=== PATIENT | female | born 1940 | race Caucasian/White ===

== ENCOUNTER 2017-02-07 20:40 | Inpatient (IN) | payer MEDICARE, BC ==
--- NOTE | ~2017-02-07 | CR72 ---
[facility] A Service of [facility] & [facility] RADIOLOGY TEXT RESULTS PATIENT: SHLOMO THOMAS LOCATION: [facility] 572-01 : 40 UNIT #: [id number] AGE: [address]: Conrad Ying MD SEX: F ORDER DR: [id number] [facility] [address]. [place], [place] [address] [id number] I MR#: [id number] #: [id number] NAME: SHLOMO THOMAS : 1940 SEX: F STUDY DATE/TIME: 02/12/2017 8:57 UNIT: [facility] ROOM: [facility] STUDY DESCRIPTION: CR Chest Single View Portable Attending Physician: Conrad Ying M.D. Referring Physician: Maulik Pizano Jr., M.D. Primary Care Physician: Maulik Pizano Jr., M.D. MEDICAL IMAGING REPORT This report is preliminary unless electronic signature is present EXAM Portable chest INDICATIONS 76-year-old female with history of right thoracentesis. COMPARISON 02/10/2017 FINDINGS There is no pneumothorax following thoracentesis. Right pleural effusion is slightly smaller. Stable consolidation right base. Remainder unchanged. IMPRESSION No pneumothorax following thoracentesis Dictated by... Rodrigo Woodward M.D. THIS IS AN ELECTRONICALLY VERIFIED REPORT Rodrigo Woodward M.D. at 02/13/2017 11:31 AM ARS/cristo TD: 02/12/2017 13:54 JOB #: [id number] MEDICAL IMAGING REPORT Page 1 of 1 COPY
--- NOTE | ~2017-02-07 | CO ---
Unit #: [id number] #: [id number] Patient: SHLOMO THOMAS [id number] [facility] [address]. [place], [place] [address] [id number] I MR#: [id number] NAME: SHLOMO THOMAS ROOM: 572 Age: 76 Sex: F Admission Date: 02/07/2017 : 1940 Attending Physician: Conrad Ying M.D. Primary Care Physician: Maulik Pizano Jr., M.D. Requesting Physician: Lana Hernandez M.D. Consultation Date: 02/08/2017 CONSULTATION REPORT REASON FOR CONSULTATION Lymphoma. 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 She had a previous admission in 09/2016. She had a persistent mass in the right lower lobe, which was initially treated as a pneumonia. 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 Post navigation bronchoscopy she had a persistent cough, which appeared to improve, and was thought to be related to some bleeding in the lung related to her procedure. She tells me that cough has persisted and has gotten worse. She has had two runs of antibiotics for Levaquin, as well as prednisone as an outpatient with failure, leading to this admission. CT scan of the chest done during this admission this morning showed right side volume loss with extensive air space disease, obscuring the previously noted mass, along with a moderate right side pleural effusion. There was no lymphadenopathy. There was an additional cardiomegaly with enlarged pulmonary arteries. She also has a history of sleep apnea but is unable to keep her mask on because of the persistent cough. No fever or chills but she feels tired and weak all the time. PAST MEDICAL HISTORY 1. Marginal zone lymphoma discussed. 2. Paroxysmal atrial fibrillation with a permanent pacemaker, secondary to gila-tachy syndrome. Anticoagulated with warfarin. 3. Hypertension. 4. Type 2 diabetes mellitus. 5. History of a previous DVT. 6. Peripheral vascular disease. 7. Cataracts. PAST SURGICAL HISTORY 1. Appendectomy. 2. Cholecystectomy. 3. D and C. 4. Arthroscopic surgery. 5. Shoulder replacement. 6. Permanent pacemaker. Unit #: [id number] #: [id number] Patient: SHLOMO THOMAS ALLERGIES Listed as multiple on the chart. FAMILY HISTORY Notable for diabetes mellitus. No history of (2)* . SOCIAL HISTORY The patient lives with her . She is a never smoker and does not drink alcohol. She is a retired registered nurse. REVIEW OF SYSTEMS 14-point systems taken: CONSTITUTIONAL: As discussed, fatigue. EYES: Negative. EARS, NOSE, MOUTH AND THROAT: Negative. CARDIOVASCULAR: No chest pain or palpitations. RESPIRATORY: Shortness of breathing, wheezing without significant cough or expectoration. GASTROINTESTINAL: Negative. GENITOURINARY: Negative. ALLERGIES/LYMPHATIC: Negative. SKIN: Negative. PSYCHIATRIC: Negative. PHYSICAL EXAMINATION GENERAL: She is a pleasant elderly woman in mild distress, secondary to difficulty breathing. VITAL SIGNS: Temperature is 98.5, pulse 71, respiratory rate 18, blood pressure 156/45. O2 sats 97% on 2 L. BMI is 45. HEENT: Pupils equal and react well to light. Mild pallor, no icterus. Mucous membranes are moist. NECK: Supple. No JVD or thyromegaly. CARDIOVASCULAR: First and second heart sounds are regular with no gallop or rubs. LUNGS: Decreased air entry lower 2/3 of the right lung, bilateral rales. ABDOMEN: Soft and nontender. Liver and spleen are not palpable. EXTREMITIES: Warm, trace edema. NEUROLOGICAL: Patient is alert and oriented x3, without any focal findings. LYMPHATIC: No palpable lymphadenopathy. SKIN: Negative. DIAGNOSTIC STUDIES LABORATORY STUDIES: Lactic acid was 2.7, BNP was 398. Basic metabolic panel shows a potassium of 6.5 at time of admission. Blood culture is 344. BUN was 60, creatinine 1.9, EGFR is 27.3, albumin 2.5, ProTime is 63.4. INR 5.7. IMAGING STUDIES: CT scan as discussed, which positive and read by me. ASSESSMENT Shlomo Thomas is a 76-year-old with a history of sleep apnea, type 2 diabetes mellitus, atrial fibrillation with a sick sinus syndrome and recently diagnosed pulmonary marginal zone lymphoma. Will start radiation therapy, having completed 9 out of 13 treatments. She has not been complaining of shortness of breathing and CT scan evidence above. The patient has right lower lobe consolidation with a moderate pleural effusion. Pulmonary marginal zone lymphoma strictly in terms of lymphoma Unit #: [id number] #: [id number] Patient: SHLOMO THOMAS (3)* response to treatment, so it is a little surprising that this should get (4)* worse with radiation therapy. She is currently being treated for broad spectrum antibiotics for hospital acquired pneumonia, which I think is reasonable. Discussed with Ms. Thomas that she will required correction of her long ProTime and after correction will plan to hold off resumption of warfarin, instead start doing Lovenox 80 mg subcu once daily to be held after Saturday's dose. If she continued to remained short of breath, will plan to get a thoracentesis on Saturday morning including sending the fluid for leukemia and lymphoma panel for evidence of resistant lymphoma. In which case she may require additional (5)* of radiation therapy of lung. Thank you for allowing me to participate in her care. *Faxed to Dr. Valdez's office on 02/11/17 for completion. cd Dictated by... Chema Rey/ken TD: 02/11/2017 11:34 JOB #: [id number] CONSULTATION REPORT X Cabrera Valdez MD X CONSULTATION REPORT
--- NOTE | ~2017-02-07 | CR72 ---
[facility] A Service of [facility] & [facility] RADIOLOGY TEXT RESULTS PATIENT: SHLOMO THOMAS LOCATION: [facility] 572-01 : 40 UNIT #: [id number] AGE: [address]: Conrad Ying MD SEX: F ORDER DR: [id number] [facility] [address] [place], [place] [address] [id number] I MR#: [id number] Acc #: [id number] NAME: SHLOMO THOMAS. : 1940 SEX: F STUDY DATE/TIME: 02/07/2017 20:42 UNIT: [facility] ROOM: [facility] STUDY DESCRIPTION: CR Chest Single View Portable Attending Physician: Conrad Ying M.D. Referring Physician: Maulik Pizano Jr., M.D. Ordering Physician: Daniele Osborne M.D. Primary Care Physician: Maulik Pizano Jr., M.D. MEDICAL IMAGING REPORT This report is preliminary unless electronic signature is present EXAM AP portable chest 02/07/2017 COMPARISON 01/03/2017 HISTORY Shortness of breath, cough and weakness for a few weeks. AP portable view is obtained. FINDINGS There is cardiac enlargement with a transvenous pacemaker in place. The patient has had a left shoulder arthroplasty. The left lung remains clear. There is worsening consolidation and development of right-sided pleural fluid. CONCLUSION Increasing consolidation right base and increasing right-sided pleural fluid compared to the earlier films of 01/03/2017. Dictated by... Maulik Woodruff M.D. THIS IS AN ELECTRONICALLY VERIFIED REPORT Maulik Woodruff M.D. at 02/11/2017 5:09 PM GIGI/kb TD: 02/08/2017 09:09 JOB #: [id number] MEDICAL IMAGING REPORT Page 1 of 1 COPY
--- NOTE | ~2017-02-07 | DS ---
Unit #: [id number] #: [id number] Patient: SHLOMO THOMAS [id number] [facility]. [address] [place], [place] [address] [id number] I MR#: [id number] NAME: SHLOMO THOMAS ROOM: 572 Age: 76 Sex: F Admission Date: 02/07/2017 : 1940 Discharge Date: Attending Physician: Conrad Ying M.D. Referring Physician: Maulik Pizano Jr., M.D. Primary Care Physician: Maulik Pizano Jr., M.D. DISCHARGE SUMMARY REASON FOR ADMISSION Acute hypoxic respiratory failure and acute kidney injury. HISTORY OF PRESENT ILLNESS/HOSPITAL COURSE The patient is a very pleasant, 76-year-old female, who presented secondary to acute hypoxic respiratory failure, off and on over the past several weeks. She had been initially diagnosed with pneumonia, failed to respond to outpatient antibiotics. She eventually underwent repeat CT scan and bronchoscopy at [facility]. Final diagnosis was made as lymphoma. She was subsequently placed under the care of Dr. Valdez and now the patient has been receiving radiation treatments over the past several days. Prior to admission, she had developed difficulty with breathing. She was noted to be acutely hypoxic in the emergency room. Chest x-ray showed consolidation of right lung base, possible right pleural effusion. CT scan was performed, which showed right-sided volume loss with consolidation in right lower lobe, which could be a combination of pneumonia, pleural effusion, as well as aforementioned lung mass and/or lymphoma. Subsequently, she was admitted for the same. Consultations were placed to Dr. Blanco of Pulmonary Services as well as Dr. Valdez. In regard to her pulmonary status, she was placed on IV antibiotics as well as routine Solu-Medrol and aerosols. Eventually through hospital course, she underwent thoracentesis, which did eventually have negative cytology. She continued her radiation treatments while she was here under evaluation of . At this point in time, the patient requires 2 L of O2 secondary to hypoxia, which may be her new baseline. Secondary to associated conditions as well as chronic and long hospital stay, Physical and Occupational Therapy Services both recommended rehab at the time of discharge. Therefore, appropriate arrangements will be made for her to be transitioned to rehab at the time of discharge. FINAL DISCHARGE DIAGNOSES 1. Acute hypoxic respiratory failure. Unit #: [id number] #: [id number] Patient: SHLOMO THOMAS 2. Chronic respiratory failure, likely a combination of lymphoma, chronic obstructive pulmonary disease, and restrictive lung disease secondary to increased body mass index. 3. Recent diagnosis of lymphoma followed by Dr. Valdez. 4. Paroxysmal atrial fibrillation. 5. Status post permanent pacemaker placement in the past. 6. Chronic anticoagulation with Coumadin. 7. Hypertension. 8. Diabetes. 9. Hyperparathyroidism, status post excision in the past of parathyroid gland. 10. Remote left arm deep venous thrombosis. 11. Prior history of left shoulder replacement. 12. Morbid obesity. 13. Peripheral vascular disease. 14. Chronic lower extremity edema. 15. Chronic lower extremity venostasis changes. 16. Chronic immobility syndrome. 17. Pleural effusion, status post thoracentesis. FINAL DISCHARGE MEDICATIONS Prednisone 40 mg p.o. daily x3 days, Tylenol 650 mg p.o. q.6 p.r.n., Coumadin 5 mg p.o. daily, metformin 500 mg p.o. b.i.d., Lomotil 2.5 mg p.o. q.6 p.r.n., Lipitor 40 mg p.o. q.h.s., Tessalon Perles 200 mg p.o. q.8 p.r.n., Cardizem CD 180 mg p.o. daily, Xanax 0.25 mg p.o. b.i.d. p.r.n., Lopressor 100 mg p.o. q.8, Lasix 40 mg p.o. Saturday, Saturday, Saturday, hydralazine 100 mg p.o. q.8, Humulin N 50 units subcu b.i.d., NovoLog medium dose sliding scale with insulin Accu-Cheks q.a.c., q.h.s., Pepcid 20 mg p.o. b.i.d., Florastor 250 mg p.o. b.i.d., Xopenex aerosol solution q.4 p.r.n., DuoNeb aerosol solution q.6 scheduled, Synthroid 50 mcg p.o. daily, vitamin B12 1000 mcg IM q.2 weeks. DISCHARGE CONDITION Stable. DISCHARGE DISPOSITION To rehab for ongoing care. DIAGNOSTIC STUDIES LABORATORY RESULTS: At the time of discharge include a creatinine of 1.1, GFR 51, INR 1.3, hemoglobin 11.2. Dictated by... Conrad Ying M.D. GLYNN/tony TD: 02/16/2017 04:51 JOB #: [id number] Unit #: [id number] #: [id number] Patient: SHLOMO THOMAS DISCHARGE SUMMARY Page 1 of 1 X Conrad Ying MD X DISCHARGE SUMMARY
--- NOTE | ~2017-02-07 | CO ---
Unit #: [id number] #: [id number] Patient: SHLOMO THOMAS [id number] [address] [place], [place] [address] [id number] I MR#: [id number] NAME: SHLOMO THOMAS ROOM: 572 Age: 76 Sex: F Admission Date: 02/07/2017 : 1940 Attending Physician: Conrad Ying M.D. Primary Care Physician: Maulik Pizano Jr., M.D. Consultation Date: 02/08/2017 CONSULTATION REPORT REASON FOR CONSULTATION Abnormal CAT scan, shortness of breath, respiratory failure. HISTORY OF PRESENT ILLNESS 76-year-old female known to me from office and previous hospitalizations who had a right lower lobe mass-like lesion. She was treated for possible pneumonia and did not improve. She ultimately underwent navigational bronchoscopy with biopsy that revealed lymphoma. She had been evaluated by Dr. Valdez and and is currently undergoing radiation therapy. She has had some cough, then developed worsening malaise. She actually just recently completed a course of Levaquin, last dose approximately a day or two ago. She also was placed on prednisone approximately three days ago by with no change in her symptoms. She had worsening shortness of breath, malaise and presented to the emergency room. Room air saturations were 88%. Chest x-ray and CT scan revealed right lower lobe consolidation. She was admitted to the hospital with pneumonia. She was also found to have hyperkalemia and acute kidney injury and her antibiotics have been adjusted. She does not feel any better today. She denies fever, sputum production, hemoptysis, chest pain. PAST MEDICAL HISTORY Remarkable for: 1. This lung mass diagnosed with lymphoma. Undergoing radiation to the primary mass. She has some scattered adenopathy of unknown clinical significance. 2. She has a history of recently diagnosed obstructive sleep apnea, just started on CPAP, and currently is intolerant primarily because of her symptoms of shortness of breath. 3. History of diabetes. 4. Hypertension. 5. Chronic dermatitis. 6. Paroxysmal atrial fibrillation. 7. Permanent pacemaker insertion. 8. Hyperparathyroidism. 9. Remote DVT that was provoked. 10. Peripheral vascular disease. MEDICATIONS Medications at home include: 1. Insulin. 2. Cardizem. 3. Metformin. 4. Glipizide. 5. Lipitor. Unit #: [id number] #: [id number] Patient: SHLOMO THOMAS 6. Lopressor. 7. Hydralazine. 8. Lisinopril. 9. Synthroid. 10. Potassium. 11. Coumadin. 12. Lasix as needed. 13. As above, was recently placed on prednisone and just completed Levaquin, both of which have been prescribed by . ALLERGIES Demeclocycline, Bactrim, Byetta. She states allergy to Cipro but she has been taking Levaquin without problems. There is some mention of a familial history of allergy to heparin but it is unclear of she had any problems. FAMILY HISTORY Diabetes. SOCIAL HISTORY Never smoker. She does not drink. 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 REVIEW OF SYSTEMS Nonproductive cough for months but it has worsened. Denies sputum production, hemoptysis. No chest pain, palpitations, abdominal pain, melena, hematochezia, trouble swallowing, hematuria, dysuria, focal weakness, paresthesia. She had very severe foot pain in the past but that has improved. She has chronic skin changes without change. No fever or chills. She currently is intolerant to CPAP. Further review of systems negative. PHYSICAL EXAMINATION GENERAL: Reveals a patient who is in no acute distress. VITAL SIGNS: She is afebrile. Pulse 71, respiratory rate 22, blood pressure 156/45. 5 foot 2, 247. BMI is 45. HEENT: Pupils equal, round, reactive to light. Sclerae anicteric. Head atraumatic. NECK: Supple. Mucous membranes moist. CHEST: She has egophony right lower lobe which was not present when I saw her in the office not long ago. May be a rare wheeze with cough but no wheeze on tidal breathing. No stridor. CARDIAC EXAMINATION: Reveals a regular rate and rhythm. Distant heart tones. No definite murmur, rub or gallop. ABDOMEN: Soft, nontender. No hepatomegaly or rebound. EXTREMITIES: No clubbing, cyanosis or edema. SKIN: Nodular, brawny induration changes that she says are chronic and stable. NEUROLOGICAL: Grossly intact. She has, overall, generalized weakness but no focality sensory or muscle weakness. DIAGNOSTIC STUDIES IMAGING: Chest x-ray - worsening density right lower lobe. Initially, she had a very focal rounded density back in September. Chest x-ray earlier this year showed worsening in that area, possible small pleural effusion and it is certainly much worse today. CT scan reveals consolidation, some of which could be tumor. Unclear how much true pneumonia. She has what the radiologist characterizes as a moderate Unit #: [id number] #: [id number] Patient: SHLOMO THOMAS A pleural effusion. To me, it looks relatively small in the grand scheme of things. LABORATORY: Her blood sugar was 344, now 239. BUN was 60, now 51. Creatinine was 1.9, now 1.7. Potassium was 6.5, now 5.0. BNP 398. Lactic acid 2.5. Procalcitonin 0.09. INR is 5.7. White blood cell count was 15.6, now 12.1. Hemoglobin 9.5. Platelet count 370. No urinalysis has been performed. Blood cultures performed and are pending. CARDIOVASCULAR: Rhythm strips appear paced, at least atrial pacing if not dual chamber. IMPRESSION 1. Shortness of breath, multifactorial. 2. Acute hypoxic respiratory failure. 3. Abnormal CAT scan: I believe there is some degree of pneumonia, some tumor, possibly some necrosis and inflammatory changes from radiation. 4. Obstructive sleep apnea: I believe severe, just recently received CPAP, currently intolerant. 5. Pulmonary lymphoma, undergoing radiation. 6. Acute kidney injury. 7. Hyperkalemia. 8. Paroxysmal atrial fibrillation. 9. Coumadin toxicity. 10. Remote history of provoked deep venous thrombosis. 11. Chronic dermatitis. 12. Diabetes, hypertension, peripheral vascular disease and multiple other problems listed above. 13. Abnormal EKG. PLAN Agree with current antibiotics. Certainly, since she has failed Levaquin, we must consider organisms that may be resistant or that Levaquin does not cover such as MRSA or Gram-negative rods. Also, consider other etiologies such as necrotic tumor, etc. Pulse steroids, check echocardiogram if not recently performed for LV function, PA pressures and rule out pericardial effusion. For now, hold her CPAP. Reinstitute once she is improved. Her oxygenation needs will be checked at discharge. Repeat EKG now that her potassium has improved will be performed. Consider cardiology evaluation if remains abnormal. Thank you very much for allowing me to participate in the care of Ms. Thomas. Dictated by... Chema Beltran/ashley TD: 02/08/2017 10:40 JOB #: [id number] Unit #: [id number] #: [id number] Patient: SHLOMO THOMAS CONSULTATION REPORT X Ceicl Blanco MD X CONSULTATION REPORT
--- NOTE | ~2017-02-07 | NM69 ---
[facility] A Service of [facility] RADIOLOGY TEXT RESULTS PATIENT: SHLOMO THOMAS LOCATION: [facility] 572-01 : 40 UNIT #: [id number] AGE: [address]: Conrad Ying MD SEX: F ORDER DR: [id number] [facility] [address] [place], [place] [address] [id number] I MR#: [id number] Acc #: [id number] NAME: SHLOMO THOMAS : 1940 SEX: F STUDY DATE/TIME: 02/10/2017 10:11 UNIT: [facility] ROOM: [facility] STUDY DESCRIPTION: NM Pulm Vent and Perf Attending Physician: Conrad Ying M.D. Referring Physician: Maulik Pizano Jr., M.D. Ordering Physician: Conrad Ying M.D. Primary Care Physician: Maulik Pizano Jr., M.D. MEDICAL IMAGING REPORT This report is preliminary unless electronic signature is present EXAM Ventilation perfusion lung scan 02/10/2017. HISTORY 76-year-old female with shortness of breath for 2 days. TECHNIQUE Radiopharmaceutical 36 mCi technetium DTPA given by inhalation. 5.7 mCi technetium MAA given IV. COMPARISON Correlation is made to chest x-ray 02/10/2017. FINDINGS Cardiomegaly and large right pleural effusion are present. There is relatively uniform ventilation and perfusion radiotracer uptake throughout both lungs with no mismatched ventilation-perfusion defects. Examination is considered low probability for pulmonary vascular occlusive disease. IMPRESSION 1. Low probability for pulmonary vascular occlusive disease. 2. Cardiomegaly and large right pleural effusion. Dictated by... Dat Rinaldi M.D. THIS IS AN ELECTRONICALLY VERIFIED REPORT Dat Rinaldi M.D. at 02/12/2017 8:36 AM DANN/rosalio TD: 02/11/2017 09:24 JOB #: [id number] [facility] A Service of [facility] RADIOLOGY TEXT RESULTS PATIENT: SHLOMO THOMAS LOCATION: [facility] 572-01 : 40 UNIT #: [id number] AGE: [address]: Conrad Ying MD SEX: F ORDER DR: MEDICAL IMAGING REPORT Page 1 of 1 COPY
--- NOTE | ~2017-02-07 | CT57 ---
[facility] A Service of [facility] RADIOLOGY TEXT RESULTS PATIENT: SHLOMO THOMAS LOCATION: [facility] 572-01 : 40 UNIT #: [id number] AGE: [address]: Conrad Ying MD SEX: F ORDER DR: [id number] [facility] [address] [place], [place] [address] [id number] I MR#: [id number] Acc #: [id number] NAME: SHLOMO THOMAS. : 1940 SEX: F STUDY DATE/TIME: 02/07/2017 22:06 UNIT: [facility] ROOM: 2 STUDY DESCRIPTION: CT Chest Wo Cont Attending Physician: Conrad Ying M.D. Referring Physician: Maulik Pizano Jr., M.D. Ordering Physician: Daniele Osborne M.D. Primary Care Physician: Maulik Pizano Jr., M.D. MEDICAL IMAGING REPORT This report is preliminary unless electronic signature is present EXAM CT chest without contrast HISTORY Shortness of air onset this evening, cough, history of lung cancer. COMPARISON CT chest, 11/13/[address] exam was performed with one or more of the following radiation dose reduction techniques: automatic exposure control, adjustment of mA and/or kV according to patient size, and iterative reconstruction. FINDINGS Axial images were performed through the chest without contrast. Multiplanar reconstructed images reviewed at a workstation. There is right-sided volume loss with extensive airspace disease and consolidation in the right lower lobe. This may obscure the patient's underlying lung mass which was noted on the prior CT scan. Image quality degraded due to patient's body habitus and associated image noise. There is a moderate right pleural effusion. Right upper lung unremarkable. The left lung demonstrates a small amount of lingular and left basilar atelectasis. There is cardiomegaly with coronary artery and aortic atherosclerotic changes. No pericardial effusion. Enlargement of the main pulmonary artery may indicate an element of pulmonary hypertension. Upper abdomen unremarkable. Patient is status post left total shoulder arthroplasty. Pacemaker noted over the left chest with atrial and ventricular leads in expected position. IMPRESSION 1. Right-sided volume loss with extensive airspace disease, STS. [facility] A Service of [facility] RADIOLOGY TEXT RESULTS PATIENT: SHLOMO THOMAS LOCATION: [facility] 572-01 : 40 UNIT #: [id number] AGE: [address]: Conrad Ying MD SEX: F ORDER DR: consolidation right lower lobe most likely represents a combination of the patient's primary lung mass and right lower lobe pneumonia. There is also a moderate right-sided pleural effusion. This represents a new finding when compared to the patient's CT scan of 11/13/2016. 2. Stable cardiomegaly with evidence of extensive coronary artery atherosclerotic disease. 3. Enlargement of the pulmonary arteries may reflect pulmonary hypertension. Dictated by... Maxx Woodward M.D. THIS IS AN ELECTRONICALLY VERIFIED REPORT Maxx Woodward M.D. at 02/08/2017 5:12 PM [place] TD: 02/08/2017 09:36 JOB #: [id number] MEDICAL IMAGING REPORT COPY
--- NOTE | ~2017-02-07 | EKG ---
PATIENT: SHLOMO THOMAS UNIT #: [id number] Ventricular Rate: 75 BPM Atrial Rate: 75 BPM P-R Interval: 256 ms QRS Duration: 102 ms Q-T Interval: 370 ms QTC Calculation(Bezet): 413 ms P Oak: -19 degrees Calculated R Oak: -20 degrees Calculated T Oak: 51 degrees Diagnosis Line: Atrial-paced rhythm with prolonged AV conduction Diagnosis Line: Low voltage QRS Diagnosis Line: Poor R wave progression questionable lead position Diagnosis Line: or body habitus Abnormal ECG Diagnosis Line: When compared with ECG of 19-AUG-2015 14:32, Diagnosis Line: Minimal criteria for Anterior infarct are now Diagnosis Line: Present Diagnosis Line: Confirmed by BRI BOYLE MD ([id number]) on 02/11/2017 Diagnosis Line: 7:17:03 AM INTERPRETING MD: TAMAR LUCIO
--- NOTE | ~2017-02-07 | XA203 ---
[facility] A Service of [facility] & [facility] RADIOLOGY TEXT RESULTS PATIENT: SHLOMO THOMAS LOCATION: [facility] 572-01 : 40 UNIT #: [id number] AGE: [address]: Conrad Ying MD SEX: F ORDER DR: [id number] [facility] [address] [place], [place] [address] [id number] I MR#: [id number] Acc #: [id number] NAME: SHLOMO THOMAS. : 1940 SEX: F STUDY DATE/TIME: 02/12/2017 8:15 UNIT: [facility] ROOM: [facility] STUDY DESCRIPTION: XA Thoracentesis Attending Physician: Conrad Ying M.D. Referring Physician: Maulik iPzano Jr., M.D. Ordering Physician: Conrad Ying M.D. Primary Care Physician: Maulik Pizano Jr., M.D. MEDICAL IMAGING REPORT This report is preliminary unless electronic signature is present EXAM Ultrasound-guided right thoracentesis. INDICATIONS 76-year female right pleural effusion. The risks, benefits and alternatives of the procedure were discussed with the patient and informed consent was obtained. In the procedure room a time-out was performed confirming correct patient and procedure. All elements maximum sterile-barrier technique utilized according guidelines appropriate for the procedure. TECHNIQUE/FINDINGS Ultrasound right posterior thorax was performed. Overlying skin was prepped and draped in the usual sterile fashion. 1% lidocaine utilized to anesthetize the skin and underlying subcutaneous tissues. Next, under ultrasound guidance a 5-Kinyarwanda Yueh catheter inserted into the pleural space and 300 mL of fluid was removed. The samples was sent to the lab. Needle was removed and a sterile dressing was applied. No immediate complications. IMPRESSION Successful send guided right thoracentesis. Dictated by... Rodrigo Woodward M.D. THIS IS AN ELECTRONICALLY VERIFIED REPORT Rodrigo Woodward M.D. at 02/13/2017 11:32 AM VIKKI/karolyn TD: 02/13/2017 07:19 STS. [facility] A Service of [facility] & [facility] RADIOLOGY TEXT RESULTS PATIENT: SHLMOO THOMAS LOCATION: [facility] 572-01 : 40 UNIT #: [id number] AGE: [address]: Conrad Ying MD SEX: F ORDER DR: JOB #: [id number] MEDICAL IMAGING REPORT Page 1 of 1 COPY
--- NOTE | ~2017-02-07 | EKG ---
PATIENT: SHLOMO THOMAS UNIT #: [id number] Ventricular Rate: 75 BPM Atrial Rate: 107 BPM P-R Interval: 248 ms QRS Duration: 96 ms Q-T Interval: 376 ms QTC Calculation(Bezet): 419 ms Calculated R Pinon: 7 degrees Calculated T Pinon: -18 degrees Diagnosis Line: Atrial-paced rhythm with prolonged AV conduction Diagnosis Line: Low voltage QRS Baseline wander Diagnosis Line: Abnormal ECG Diagnosis Line: When compared with ECG of 07-FEB-2017 20:57, Diagnosis Line: (unconfirmed) Diagnosis Line: Minimal criteria for Anterior infarct are no Diagnosis Line: longer Present Diagnosis Line: T wave inversion now evident in Inferior leads Diagnosis Line: Nonspecific T wave abnormality, worse in Lateral Diagnosis Line: leads Diagnosis Line: Confirmed by BRI BOYLE MD ([id number]) on 02/11/2017 Diagnosis Line: 7:21:26 AM INTERPRETING MD: TAMAR LUCIO
--- NOTE | ~2017-02-07 | DS ---
Unit #: [id number] #: [id number] Patient: SHLOMO THOMAS [id number] [address] [place], [place] [address] [id number] I MR#: [id number] NAME: SHLOMO THOMAS ROOM: 572 Age: 76 Sex: F Admission Date: 02/07/2017 : 1940 Discharge Date: 02/16/2017 Attending Physician: Conrad Ying M.D. Referring Physician: Maulik Pizano Jr., M.D. Primary Care Physician: Maulik Pizano Jr., M.D. DISCHARGE SUMMARY ADDENDUM Please see above discharge summary for complete details of hospital stay. Initially, plans were made for discharge to rehab; however, after the patient was evaluated by Physical therapy once again, she was able to ambulate approximately 200 feet and she did have an episode of weakness to which she did come to the floor; however, the patient's insurance company stated that she did not qualify for rehab and per patient's insurance company guidelines and regulations for Medicare, we will make arrangements for the patient to be discharged home. Appropriate prescriptions were written for. I did discuss with the patient in detail. She is in agreement with the plan. We will have home health setup at time of discharge as well. The patient discharged in stable condition. Appropriate outpatient followup as detailed above. Dictated by... Chema Dewitt/tony TD: 02/16/2017 21:04 JOB #: [id number] DISCHARGE SUMMARY Page 1 of 1 X Conrad Ying MD X DISCHARGE SUMMARY
--- NOTE | ~2017-02-07 | BMI ---
[facility] Nutrition Therapy DATE: 02/08/17 Patient: SHLOMO THOMAS Physician: BELLA Address: [address] Room/Bed: [address] [place] [address], Zip: [place] [address] Admit Date: 02/07/17 Date of : 40 Height: 5 2 Weight: 247 112.4 HIGH BMI NOTE: DX: 76 Y.O. FEMALE ADMITTED FOR LINK, RESP FAILURE, COUMADIN ANTHROPOMETRICS: 5'2", WT: 240# (109 KG), BMI: 43.9 DIET: CC+HH INTERVENTION: 1. CC+ HH DIET RECOMMENDATIONS: 1. CONTINUE CURRENT DIET ORDER ABOVE TO PROMOTE GRADUAL WEIGHT LOSS TOWARDS HEALTHY BMI (19.0-25.0) OR +/-10%IBW RD WILL F/U PER PROTOCOL Respectfully, HU MCLAIN MS, RD, LD Food and Nutritional Services [facility] cc: client file
--- NOTE | ~2017-02-07 | CR63 ---
[facility] A Service of [facility] & [facility] RADIOLOGY TEXT RESULTS PATIENT: SHLOMO THOMAS LOCATION: [facility] 57-01 : 40 UNIT #: [id number] AGE: [address]: Conrad Ying MD SEX: F ORDER DR: [id number] [facility] [address] [place], [place] [address] [id number] I MR#: [id number] Acc #: [id number] NAME: SHLOMO THOMAS : 1940 SEX: F STUDY DATE/TIME: 02/10/2017 9:27 UNIT: [facility] ROOM: [facility] STUDY DESCRIPTION: CR Chest 2 View Attending Physician: Conrad Ynig M.D. Referring Physician: Maulik Pizano Jr., M.D. Ordering Physician: Ben Miller M.D. Primary Care Physician: Maulik Pizano Jr., M.D. MEDICAL IMAGING REPORT This report is preliminary unless electronic signature is present EXAM PA and lateral chest 02/10/2017 at 9:27. COMPARISON 02/07/2017. HISTORY Short of air today. History of lung cancer. FINDINGS Increasing opacity of the right hemithorax with an increasing now at least moderate or moderate to large right pleural effusion. Cardiomegaly and vascular congestion seen also slightly worsened. No pneumothorax. Dictated by... Jeffery Jeff M.D. THIS IS AN ELECTRONICALLY VERIFIED REPORT Jeffery Jeff M.D. at 02/12/2017 1:49 PM TEV/gz TD: 02/11/2017 09:22 JOB #: [id number] MEDICAL IMAGING REPORT Page 1 of 1 COPY
--- NOTE | ~2017-02-07 | US84 ---
[id number] [facility]. [facility] [address] [place], [place] [address] [id number] I MR#: [id number] Acc #: [id number] NAME: SHLOMO THOMAS : 1940 SEX: F STUDY DATE/TIME: 02/10/2017 10:54 UNIT: [facility] ROOM: 572 STUDY DESCRIPTION: US LE Veins Complete Hong Stdy Attending Physician: Conrad Ying M.D. Referring Physician: Maulik Pizano Jr., M.D. Ordering Physician: Conrad Ying M.D. Primary Care Physician: Maulik Pizano Jr., M.D. MEDICAL IMAGING REPORT This report is preliminary unless electronic signature is present EXAM Bilateral lower extremity venous Doppler, 02/10/2017. HISTORY Significant bilateral lower extremity swelling; evaluate for DVT. FINDINGS The right common femoral vein, proximal superficial femoral vein, deep femoral vein, popliteal vein, and tibial veins are widely patent with normal-appearing phasic flow with respiration and augmentation. The mid and distal thigh superficial femoral vein was not visualized on this examination. Deep proximal and distal greater saphenous vein is patent and compressible. The left common femoral vein, deep femoral vein, proximal and mid superficial femoral vein, popliteal vein, and tibial veins are widely patent and compressible with phasic flow with respiration and augmentation. The distal left superficial femoral vein is not visualized on this examination. The proximal and distal greater saphenous vein is patent and compressible. IMPRESSION No evidence of either right or left lower extremity deep venous thrombosis with nonvisualization of the right mid and distal thigh superficial femoral vein and left distal superficial femoral vein. There is no evidence of superficial venous thrombosis. Dictated by... Rakesh Garcia M.D. THIS IS AN ELECTRONICALLY VERIFIED REPORT Rakesh Garcia M.D. at 02/13/2017 6:26 AM TRACIE/kaitlin TD: 02/11/2017 09:36 JOB #: [id number] MEDICAL IMAGING REPORT Page 1 of 1 COPY
--- NOTE | ~2017-02-07 | HP ---
Unit #: [id number] #: [id number] Patient: SHLOMO THOMAS [id number] [facility]. [place] [address]. [place], [place] [address] [id number] I MR#: [id number] NAME: SHOLMO THOMAS. ROOM: 572 Age: 76 Sex: F Admission Date: 02/07/2017 : 1940 Attending Physician: Lana Hernandez M.D. Referring Physician: Maulik Pizano Jr., M.D. Primary Care Physician: Maulik Pizano Jr., M.D. HISTORY AND PHYSICAL CHIEF COMPLAINT Acute hypoxic respiratory failure, acute kidney injury. 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 The patient was admitted to this facility 09/2016 and was diagnosed with possible pneumonia. Had repeat CT scans, which did not show improvement. Ultimately underwent bronchoscopy at [facility]. Was told that she had lymphoma and is being seen by Dr. Valdez. She is undergoing radiation by Dr. Dariusz Jones. Has been having difficulty with shortness of breath for some time and nonproductive cough. She was given two rounds of Levaquin, and yesterday was placed on prednisone as well. She had sudden onset of shortness of breath at 7:00 p.m. tonight with her cough. Denies chest pain with the above, denies fevers, sweats or chills. She has been experiencing anorexia with decrease p.o. intake. She was brought to this emergency department around 8:00 p.m., short of breath, and a bit agitated because she was short of breath. Her O2 saturation was only 88% on room air. She was afebrile. She was given a small dose of Xanax to calm her down. Chest x-ray shows worsening consolidation of the right base with increased right pleural effusion. A CT scan was therefore, performed showing right-sided volume loss with consolidation right lower lobe, which could be a consolidation right lower lobe, which could be a combination of pneumonia, along with patient's known lung mass with moderate right pleural effusion. Labs are notable for serum glucose of 344, acute kidney injury, Coumadin toxicity and hyperkalemia. The patient, therefore, was treated with Zosyn, tobramycin, vancomycin. She is given a calcium gluconate, bicarb, IV insulin along with a liter of saline. Again while she has a nonproductive cough, she denies chest pain, fever, sweats or chills with the above. PAST MEDICAL HISTORY 1. Recent diagnosis of lymphoma being followed by Dr. Valdez. The patient is undergoing radiation treatment by Dr. Dariusz Jones. She was recently treated with two rounds of Levaquin for her cough and possible pneumonia and was placed on prednisone yesterday. 2. Paroxysmal atrial fibrillation, status post permanent pacemaker insertion, followed by Dr. Wing Tuttle. Patient is anticoagulated. 3. Hypertension. 4. AODM. 5. Hyperparathyroidism with excision of parathyroid gland. 6. Remote left arm DVT following a total shoulder replacement. Unit #: [id number] #: [id number] Patient: SHLOMO THOMAS 7. Peripheral vascular disease. 8. Cataract extraction. 9. Appendectomy. 10. Cholecystectomy. 11. Previous D and C. 12. Right arthroscopic knee surgery. ALLERGIES Demeclocycline, Bactrim, Byetta. Patient developed a rash when touching Thorazine while working as a nurse. She is also allergic to Cipro, resulting in a rash. Her family is allergic to heparin and she was told not to take heparin. HOME MEDICATIONS Novolin N 50 units q. a.m. and 42 units in the evening; Cardizem ER 180 mg daily; metformin 500 mg q. p.m.; glipizide 10 mg b.i.d.; Lipitor 80 mg q.h.s.; Lopressor 100 mg t.i.d.; hydralazine 100 mg t.i.d.; lisinopril 40 mg q.a.m.; Synthroid 0.5 mg daily; potassium 20 mEq q. a.m.; Coumadin 5 mg as directed; vitamin D 4,000 units q.a.m.; Lasix 40 mg daily as needed; recently started on prednisone yesterday; B12 shots each month and Tylenol. FAMILY HISTORY Diabetes mellitus. SOCIAL HISTORY The patient lives with her . She is a lifelong nonsmoker and does not drink alcohol. 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 REVIEW OF SYSTEMS Notable for cough, shortness of breath, PAF, hyperlipidemia, hypertension, lymphoma, AODM, hyperparathyroidism, remote DVT, above mentioned surgeries. All other systems were reviewed and are otherwise negative. PHYSICAL EXAMINATION GENERAL: Pleasant, obese, 76-year-old female who has a frequent nonproductive cough. VITAL SIGNS: Temperature 97.6, pulse 83, respirations 26, blood pressure 164/94, O2 saturation is 88% on room air. HEENT: Eyes - PERRLA, extraocular muscles are intact. Pharynx - dry mucosal membranes. NECK: Supple without adenopathy or thyromegaly. CHEST: With diminished breath sounds at the right base and some crackles at the right base. CARDIAC: Normal S1 and S2 without definite murmur. ABDOMEN: Bowel sounds are present. No hepatosplenomegaly, tenderness, or masses. EXTREMITIES: Notable for chronic pedal edema. Pedal pulses are diminished. No ulcers on the feet. NEUROLOGIC: Patient is awake, alert and oriented. Cranial nerves are intact. Equal strength throughout. DIAGNOSTIC STUDIES ADMISSION LABS: Hematocrit is 33.2, which is stable, white blood count 15.6 but the patient is on steroids. Platelet count is 484. 1 band noted. INR is 5.7. SMA 12 - glucose 344, BUN 60, creatinine 1.9, sodium 134, potassium is 6.5, CO2 19, protein 8.4, albumin 2.5, alk phos 109, BNP 400, lactic acid 2.7. Unit #: [id number] #: [id number] Patient: SHLOMO THOMAS IMAGING STUDIES: Chest x-ray - increased consolidation right base with increased right pleural effusion. CT of the chest without contrast right volume loss. Consolidation right lower lobe, likely a combination of pneumonia and mass with moderate right pleural effusion. Likely pulmonary hypertension. CARDIOLOGY STUDIES: EKG - paced rhythm rate 75. ASSESSMENT 1. Acute hypoxic respiratory failure. Patient has a pulmonary lymphoma, undergoing XRT. Has consolidation of the right base despite two rounds of Levaquin. I am unsure if this is truly related to pneumonia. Also has a moderate right pleural effusion. 2. Acute kidney injury in part secondary to poor p.o. and medications. Patient has associated hyperkalemia on oral potassium. 3. Possible early sepsis. 4. Uncontrolled AODM, patient just started prednisone. 5. Paroxysmal atrial fibrillation, status post permanent pacemaker anticoagulated with Coumadin toxicity. 6. Essential hypertension. PLANS 1. Medications were given for hyperkalemia in the ER. Will shortly recheck labs. Patient received tobramycin, vancomycin and Zosyn in the ER. In the morning will change antibiotics to cefepime and Zyvox given acute kidney injury pending cultures. Again I am unsure if patient truly has pneumonia, and I will check a procalcitonin level. 2. Check cardiac enzymes. 3. Pulmonary and oncology, along with radiology oncology consultation. 4. Hold potassium, Glucophage, Lasix, lisinopril, and Coumadin. 5. IV fluids and supportive treatment. 6. Xopenex mini-nebs. 7. Repeat lactic acid level as well. 8. Urinalysis. 9. Further workup depending on above. Dictated by Lana Hernandez M.D. AML/ts TD: 02/08/2017 05:12 JOB #: [id number] HISTORY AND PHYSICAL X Lana Hernandez MD X HISTORY AND PHYSICAL
--- NOTE | ~2017-02-07 | CT71 ---
[facility] A Service [facility] RADIOLOGY TEXT RESULTS PATIENT: SHLOMO THOMAS LOCATION: [facility] 572-01 : 40 UNIT #: [id number] AGE: [address]: Conrad Ying MD SEX: F ORDER DR: [id number] [facility] [address] [place], [place] [address] [id number] I MR#: [id number] Acc #: [id number] NAME: SHLOMO THOMAS : 1940 SEX: F STUDY DATE/TIME: 02/11/2017 20:23 UNIT: [facility] ROOM: [facility] STUDY DESCRIPTION: CT Head Wo Contrast Attending Physician: Conrad Ying M.D. Referring Physician: Maulik Pizano Jr., M.D. Ordering Physician: Conrad Ying M.D. Primary Care Physician: Maulik Pizano Jr., M.D. MEDICAL IMAGING REPORT This report is preliminary unless electronic signature is present EXAM Head CT 02/11/2017 INDICATION Increasing confusion today which is new onset. Patient also reports finger numbness. Patient has a history of lung cancer. TECHNIQUE This CT exam was performed with one or more of the following radiation dose reduction techniques: automatic exposure control, adjustment of mA and/or kV according to patient size, and iterative reconstruction. FINDINGS Axial images were obtained from the base to the vertex without contrast. No comparisons. There are atherosclerotic calcifications in the carotid siphons and distal vertebral arteries. Ventricular size and configuration are within normal limits. The exam is slightly motion-degraded. Chronic small vessel ischemic changes are present in the white matter. No acute infarct or hemorrhage is seen. No skull fracture. No suspicious osseous lesions. IMPRESSION Motion-degraded exam. No acute abnormalities are identified, however. Dictated by... Daniele Tobias Jr., M.D. THIS IS AN ELECTRONICALLY VERIFIED REPORT Daniele Tobias Jr., M.D. at 02/12/2017 4:22 PM [facility] A Service [facility] RADIOLOGY TEXT RESULTS PATIENT: SHLOMO THOMAS LOCATION: [facility] 572-01 : 40 UNIT #: [id number] AGE: [address]: Conrad Ying MD SEX: F ORDER DR: JAZZMINE/melecio TD: 02/12/2017 10:31 JOB #: [id number] MEDICAL IMAGING REPORT Page 1 of 1 COPY
[~2017-02-07 20:40] MED LIST: ADALATCC PO; AMOXICILLIN500 M1 PO; ASPIR-TRIN325 MG PO; ASPIRINEC PO; ATORVASTATIN CA80 MG PO; AUGMENTIN PO; CALAN SR PO; CALCIUM WITH VIT D; COLACE PO; COUMADIN5 MG PO; COUMADIN7.5 MG PO; CYANOCOBAL1000 MCG/M INJ; DIAZEPAM PO; DILTIAZEM ER180 MG PO; DIOVAN PO; GLIPIZIDE10 MG PO; GLUCOTROL XL PO; HUMULIN N100 U/ML SUBQ; HYDRALAZINE HC100 MG PO; K-DUR20 ME1 PO; KLOR-CON PO; LANTUS100 U/ML INJ; LASIX PO; LEVEMIR SUBQ; LEVOTHYROXINE50 MCG PO; LISINOPRIL20 MG PO; METFORMIN HCL500 M1 PO; METOPROLOL TAR100 MG PO; METOPROLOL TAR25 MG PO; MILK OF MAGNESIA PO; PACERONE PO; TOPROL XL PO; TRAMADOL HCL50 M2 PO; VITAMIN D 4001 UDTAB PO; VITAMIN D2000 UNIT PO; VYTORIN 10/80 T1 TAB PO; XARELTO10 MG PO; ZESTRIL40 MG PO
[2017-02-07 21:27] LABS: BASOPHIL% 0.3 % (0-2.5); EOSINOPHIL# 0.1 X10e3 (0-0.7); EOSINOPHIL% 0.4 % (0.0-7.0); HEMATOCRIT 33.2 % (35.0-45.0); HEMOGLOBIN 10.5 gm/dL (12.0-16.0); LYMPHOCYTE# 0.4 X10e3 (1.0-3.5); LYMPHOCYTE% 2.6 % (17.0-45.0); MEAN CELL VOLUME 85.6 FL (83-96); MEAN CORPUSCULAR HEMOGLOBIN 27.2 PG (28-34); MEAN CORPUSCULAR HGB CONC 31.7 g/dL (30-36); MEAN PLATELET VOLUME 8.1 FL (6.5-11.5); MONOCYTE# 0.9 X10e3 (0-1.0); MONOCYTE% 5.5 % (3.0-12.0); NEUTROPHIL# 14.3 X10e3 (1.5-7.1); NEUTROPHIL% 91.2 % (40-75); PLATELET COUNT 484 X10e3 (140-420); RED BLOOD COUNT 3.87 X10e (3.90-5.30); RED CELL DISTRIBUTION WIDTH 15.6 % (11.0-15.5); WHITE BLOOD COUNT 15.6 X10e3 (4.0-10.5)
[2017-02-07 21:29] LABS: DIFF IND YES
[2017-02-07 21:57] LABS: ALBUMIN SERUM 2.5 g/dL (3.5-5.0); BILIRUBIN, DIRECT 0.1 mg/dL (0.0-0.2); BILIRUBIN,INDIRECT 0.5 mg/dL (0.0-0.9); BILIRUBIN,TOTAL 0.6 mg/dL (0.2-2.0); BUN/CREATININE RATIO 31.57; CALCIUM SERUM 9.8 mg/dL (8.4-10.2); CREATININE SERUM 1.9 mg/dL (0.6-1.4); GLOM FILT RATE Estimated 27.3 mL/min (>60); PROTEIN TOTAL SERUM 8.4 g/dL (6.0-8.3)
[2017-02-07 22:00] LABS: POTASSIUM 6.5 mmol/L (3.5-5.1)
[2017-02-07 22:06] LABS: PROTHROMBIN TIME (PATIENT) 63.4 SECONDS (9.6-11.5)
[2017-02-07 22:07] LABS: INR 5.7
[2017-02-07 22:21] LABS: ANISOCYTOSIS SL; HYPOCHROMIA SL; PLATELET ESTIMATE NORMAL (NORMAL); POLYCHROMASIA SL
[2017-02-08 02:33] LABS: BUN/CREATININE RATIO 32.94; CALCIUM SERUM 9.3 mg/dL (8.4-10.2); CREATININE SERUM 1.7 mg/dL (0.6-1.4); GLOM FILT RATE Estimated 31.1 mL/min (>60)
[2017-02-08 02:35] LABS: POTASSIUM 5.7 mmol/L (3.5-5.1)
[2017-02-08] MEDS ORDERED: ACETAMINOPHEN PO (02:37)
[2017-02-08 07:57] LABS: BASOPHIL% 0.2 % (0-2.5); HEMATOCRIT 30.9 % (35.0-45.0); HEMOGLOBIN 9.5 gm/dL (12.0-16.0); LYMPHOCYTE# 0.6 X10e3 (1.0-3.5); LYMPHOCYTE% 5.3 % (17.0-45.0); MEAN CELL VOLUME 86.3 FL (83-96); MEAN CORPUSCULAR HEMOGLOBIN 26.7 PG (28-34); MEAN CORPUSCULAR HGB CONC 30.9 g/dL (30-36); MEAN PLATELET VOLUME 7.9 FL (6.5-11.5); MONOCYTE# 1.2 X10e3 (0-1.0); MONOCYTE% 9.8 % (3.0-12.0); NEUTROPHIL# 10.2 X10e3 (1.5-7.1); NEUTROPHIL% 84.7 % (40-75); PLATELET COUNT 370 X10e3 (140-420); RED BLOOD COUNT 3.58 X10e (3.90-5.30); WHITE BLOOD COUNT 12.1 X10e3 (4.0-10.5)
[2017-02-08 08:06] LABS: DIFF IND NO
[2017-02-08 08:20] LABS: PARTIAL THROMBOPLASTIN TIME 37.3 SECONDS (23.5-31.3); PROTHROMBIN TIME (PATIENT) 63.6 SECONDS (9.6-11.5)
[2017-02-08 08:30] LABS: INR 5.7
[2017-02-08 08:31] LABS: ALBUMIN SERUM 2.3 g/dL (3.5-5.0); BILIRUBIN,TOTAL 0.2 mg/dL (0.2-2.0); CALCIUM SERUM 9.3 mg/dL (8.4-10.2); CREATININE SERUM 1.7 mg/dL (0.6-1.4); GLOM FILT RATE Estimated 31.1 mL/min (>60); PROTEIN TOTAL SERUM 7.6 g/dL (6.0-8.3)
[2017-02-08 08:36] LABS: PROCALCITONIN 0.09 NG/ML
[2017-02-08 08:49] LABS: %MB 6.7 % (0.0-4.0); MB 7.7 ng/ml
[2017-02-08 14:22] LABS: INFLUENZA A NEG (NEG); INFLUENZA B NEG (NEG)
[2017-02-08 16:13] LABS: INR 4.2; PROTHROMBIN TIME (PATIENT) 46.3 SECONDS (9.6-11.5)
[2017-02-09 06:20] LABS: INR 4.4; PROTHROMBIN TIME (PATIENT) 48.8 SECONDS (9.6-11.5)
[2017-02-09 06:36] LABS: HEMATOCRIT 31.9 % (35.0-45.0); HEMOGLOBIN 9.9 gm/dL (12.0-16.0); MEAN CELL VOLUME 86.6 FL (83-96); MEAN CORPUSCULAR HGB CONC 31.2 g/dL (30-36); MEAN PLATELET VOLUME 8.2 FL (6.5-11.5); RED BLOOD COUNT 3.68 X10e (3.90-5.30); RED CELL DISTRIBUTION WIDTH 15.2 % (11.0-15.5); WHITE BLOOD COUNT 7.1 X10e3 (4.0-10.5)
[2017-02-09 07:33] LABS: BUN/CREATININE RATIO 32.14; CALCIUM SERUM 8.8 mg/dL (8.4-10.2); CREATININE SERUM 1.4 mg/dL (0.6-1.4); GLOM FILT RATE Estimated 38.9 mL/min (>60); POTASSIUM 4.5 mmol/L (3.5-5.1)
[2017-02-09 13:09] LABS: LEGIONELLA AG URINE NEG (NEG)
[2017-02-10 05:30] LABS: BASOPHIL% 0.4 % (0-2.5); DIFF IND NO; HEMATOCRIT 32.8 % (35.0-45.0); HEMOGLOBIN 10.3 gm/dL (12.0-16.0); LYMPHOCYTE# 0.2 X10e3 (1.0-3.5); LYMPHOCYTE% 2.2 % (17.0-45.0); MEAN CELL VOLUME 86.6 FL (83-96); MEAN CORPUSCULAR HEMOGLOBIN 27.1 PG (28-34); MEAN CORPUSCULAR HGB CONC 31.2 g/dL (30-36); MEAN PLATELET VOLUME 8.2 FL (6.5-11.5); MONOCYTE# 0.4 X10e3 (0-1.0); MONOCYTE% 4.4 % (3.0-12.0); PLATELET COUNT 332 X10e3 (140-420); RED BLOOD COUNT 3.79 X10e (3.90-5.30); RED CELL DISTRIBUTION WIDTH 15.6 % (11.0-15.5); WHITE BLOOD COUNT 9.7 X10e3 (4.0-10.5)
[2017-02-10 05:40] LABS: INR 4.1; PROTHROMBIN TIME (PATIENT) 45.3 SECONDS (9.6-11.5)
[2017-02-10 07:26] LABS: BUN/CREATININE RATIO 28.57; CREATININE SERUM 1.4 mg/dL (0.6-1.4); GLOM FILT RATE Estimated 38.9 mL/min (>60); POTASSIUM 3.5 mmol/L (3.5-5.1)
[2017-02-11 05:29] LABS: BASOPHIL% 0.1 % (0-2.5); HEMATOCRIT 33.5 % (35.0-45.0); HEMOGLOBIN 10.4 gm/dL (12.0-16.0); LYMPHOCYTE# 0.2 X10e3 (1.0-3.5); LYMPHOCYTE% 2.4 % (17.0-45.0); MEAN CELL VOLUME 86.8 FL (83-96); MEAN CORPUSCULAR HEMOGLOBIN 26.8 PG (28-34); MEAN CORPUSCULAR HGB CONC 30.9 g/dL (30-36); MEAN PLATELET VOLUME 7.9 FL (6.5-11.5); MONOCYTE# 0.7 X10e3 (0-1.0); MONOCYTE% 6.6 % (3.0-12.0); NEUTROPHIL# 9.3 X10e3 (1.5-7.1); NEUTROPHIL% 90.9 % (40-75); PLATELET COUNT 298 X10e3 (140-420); RED BLOOD COUNT 3.86 X10e (3.90-5.30); RED CELL DISTRIBUTION WIDTH 15.3 % (11.0-15.5); WHITE BLOOD COUNT 10.2 X10e3 (4.0-10.5)
[2017-02-11 05:33] LABS: DIFF IND NO
[2017-02-11 06:01] LABS: INR 2.1
[2017-02-11 06:02] LABS: BUN/CREATININE RATIO 30.83; CALCIUM SERUM 9.1 mg/dL (8.4-10.2); CREATININE SERUM 1.2 mg/dL (0.6-1.4); GLOM FILT RATE Estimated 46.4 mL/min (>60); POTASSIUM 3.5 mmol/L (3.5-5.1)
[2017-02-11 06:04] LABS: PROTHROMBIN TIME (PATIENT) 22.6 SECONDS (9.6-11.5)
[2017-02-11 12:43] LABS: ALBUMIN SERUM 2.3 g/dL (3.5-5.0); BILIRUBIN,TOTAL 0.5 mg/dL (0.2-2.0); PROTEIN TOTAL SERUM 6.6 g/dL (6.0-8.3)
[2017-02-11 12:44] LABS: BUN/CREATININE RATIO 30.83; CREATININE SERUM 1.2 mg/dL (0.6-1.4); GLOM FILT RATE Estimated 46.4 mL/min (>60)
[2017-02-11 12:45] LABS: CALCIUM SERUM 9.1 mg/dL (8.4-10.2); POTASSIUM 3.5 mmol/L (3.5-5.1)
[2017-02-12 06:34] LABS: INR 1.3; PROTHROMBIN TIME (PATIENT) 13.9 SECONDS (9.6-11.5)
[2017-02-12 10:32] LABS: BF TOTAL NUCLEATED CELL COUNT 93 CMM (0-100); BODY FLUID APPEARANCE HAZY; BODY FLUID RBC <10000 CMM; BODY FLUID SOURCE PLEURAL
[2017-02-13 05:32] LABS: HEMATOCRIT 33.1 % (35.0-45.0); HEMOGLOBIN 10.4 gm/dL (12.0-16.0); MEAN CELL VOLUME 86.2 FL (83-96); MEAN CORPUSCULAR HGB CONC 31.3 g/dL (30-36); MEAN PLATELET VOLUME 8.1 FL (6.5-11.5); RED BLOOD COUNT 3.84 X10e (3.90-5.30); RED CELL DISTRIBUTION WIDTH 15.7 % (11.0-15.5)
[2017-02-13 06:10] LABS: BUN/CREATININE RATIO 37.27; CALCIUM SERUM 8.7 mg/dL (8.4-10.2); CREATININE SERUM 1.1 mg/dL (0.6-1.4); GLOM FILT RATE Estimated 51.3 mL/min (>60); POTASSIUM 3.4 mmol/L (3.5-5.1)
[2017-02-13 06:11] LABS: INR 1.2; PROTHROMBIN TIME (PATIENT) 13.1 SECONDS (9.6-11.5)
[2017-02-13 12:56] LABS: ARTERIAL BLD GAS O2 SATURATION 96.9 % (90.0-100.0); ARTERIAL BLOOD GAS CARBOXY HB 0.4 %sat (0.0-9.0); ARTERIAL BLOOD GAS HCO3 27.4 mmol/L; ARTERIAL BLOOD GAS MET HB 0.9 %sat (0.0-2.0); ARTERIAL BLOOD GAS PCO2 49.8 mmHg (35.0-45.0); ARTERIAL BLOOD GAS pH 7.349 (7.350-7.450)
[2017-02-13 12:57] LABS: ARTERIAL BLOOD GAS ALLEN TEST NORMAL; ARTERIAL BLOOD GAS ART SITE RIGHT RADIAL; ARTERIAL BLOOD GAS DELIVERY NASAL CANNULA; ARTERIAL DRAW? YES
[2017-02-14 08:06] LABS: HEMATOCRIT 36.3 % (35.0-45.0); HEMOGLOBIN 11.2 gm/dL (12.0-16.0); MEAN CELL VOLUME 86.3 FL (83-96); MEAN CORPUSCULAR HEMOGLOBIN 26.5 PG (28-34); MEAN CORPUSCULAR HGB CONC 30.7 g/dL (30-36); MEAN PLATELET VOLUME 8.4 FL (6.5-11.5); RED BLOOD COUNT 4.21 X10e (3.90-5.30); RED CELL DISTRIBUTION WIDTH 15.5 % (11.0-15.5); WHITE BLOOD COUNT 12.6 X10e3 (4.0-10.5)
[2017-02-14 08:23] LABS: INR 1.3; PROTHROMBIN TIME (PATIENT) 13.3 SECONDS (9.6-11.5)
[2017-02-14 08:35] LABS: BUN/CREATININE RATIO 35.45; CALCIUM SERUM 8.9 mg/dL (8.4-10.2); CREATININE SERUM 1.1 mg/dL (0.6-1.4); GLOM FILT RATE Estimated 51.3 mL/min (>60); POTASSIUM 3.4 mmol/L (3.5-5.1)
[2017-02-15 09:26] LABS: INR 1.7
[2017-02-16] MEDS ORDERED: LEVALBUTEROL (17:15)
[2017-02-16] MEDS ORDERED: LISINOPRIL2.5 MG PO (17:16)
[2017-02-16] MEDS ORDERED: LIPITOR40 MG PO (17:16)
[2017-02-16] MEDS ORDERED: TESSALON PERLE100 M1 PO (17:18)
[2017-02-16] MEDS ORDERED: COUMADIN PO (17:18)
[2017-02-16] MEDS ORDERED: PREDNISONE PO (17:19)
[2017-02-16] MEDS ORDERED: LOMOTIL WHITE2.5 M1 PO (17:19)
[2017-02-16] MEDS ORDERED: ALBUTEROL INH (17:20)
[2017-02-16] MEDS ORDERED: IPRATROPIUM INH (17:20)
[2017-02-16] MEDS ORDERED: XANAX PO (17:22)
[2017-02-16] MEDS ORDERED: LASIX PO (17:26)
[2017-02-16] MEDS ORDERED: LEVALBUTER1.25 MG/1 INH (17:30)
[2017-02-16] MEDS ORDERED: PEPCID AC20 M2 PO (17:32)
[2017-02-16] MEDS ORDERED: OXYGEN (17:33)
== END 2017-02-16 18:26 | disposition home health service (06) | DRG 871 ==
LOC: CED 20:40 → CEDOF 23:40 → C5C 02-08 02:04
PROVIDERS: Emergency Medicine; Family Medicine; Internal Medicine; Internal Medicine Hematology & Oncology
PROC: 04HK33Z Insertion of Infusion Device into Right Femoral Artery, Percutaneous Approach (ICD-10-PCS; 2017-02-07)
PROC: 30243L1 Transfusion of Nonautologous Fresh Plasma into Central Vein, Percutaneous Approach (ICD-10-PCS; 2017-02-08)
PROC: 0W993ZX Drainage of Right Pleural Cavity, Percutaneous Approach, Diagnostic (ICD-10-PCS; principal; 2017-02-12)
DX: A41.9 Sepsis, unspecified organism (principal); J18.9 Pneumonia, unspecified organism; J96.01 Acute respiratory failure with hypoxia; N17.9 Acute kidney failure, unspecified; J91.8 Pleural effusion in other conditions classified elsewhere; J96.10 Chronic respiratory failure, unspecified whether with hypoxia or hypercapnia; C85.90 Non-Hodgkin lymphoma, unspecified, unspecified site; E11.65 Type 2 diabetes mellitus with hyperglycemia; Z68.42 Body mass index [BMI] 45.0-49.9, adult; R65.20 Severe sepsis without septic shock; J44.9 Chronic obstructive pulmonary disease, unspecified; E66.01 Morbid (severe) obesity due to excess calories; I48.0 Paroxysmal atrial fibrillation; Z79.01 Long term (current) use of anticoagulants; J98.4 Other disorders of lung; Z95.0 Presence of cardiac pacemaker; I10 Essential (primary) hypertension; Z79.4 Long term (current) use of insulin; E21.3 Hyperparathyroidism, unspecified; E87.5 Hyperkalemia; M62.3 Immobility syndrome (paraplegic); I87.8 Other specified disorders of veins; I73.9 Peripheral vascular disease, unspecified; Z96.612 Presence of left artificial shoulder joint; T45.511A Poisoning by anticoagulants, accidental (unintentional), initial encounter; Y92.9 Unspecified place or not applicable; G47.33 Obstructive sleep apnea (adult) (pediatric); R94.31 Abnormal electrocardiogram [ECG] [EKG]; L30.9 Dermatitis, unspecified; I49.5 Sick sinus syndrome; Z90.49 Acquired absence of other specified parts of digestive tract; Z88.1 Allergy status to other antibiotic agents; Z88.8 Allergy status to other drugs, medicaments and biological substances; Z83.3 Family history of diabetes mellitus; R19.7 Diarrhea, unspecified
CPT/HCPCS: 36600; 70450; 71010; 71020; 71250; 78582; 80048; 80053; 80076; 82308; 82550; 82553; 82803; 82945; 82947; 83605; 83615; 83880; 83986; 84157; 84443; 84484; 85025; 85027; 85610; 85730; 86850; 86900; 86901; 87040; 87045; 87070; 87205; 87427; 87449; 87493; 87804; 87899; 88108; 88184; 88185; 88305; 89051; 93005; 93306; 93970; 94640; 94760; 97110; 97116; 97162; 97166; 97530; 97535; 99291; A9540; A9567; G8987-GO; G8988-GO; G8989-GO; G8990-GP; G8991-GP; J0610; J0692; J1650; J1815; J2020; J2543; J2920; J3260; J3370; J3430; P9059

== ENCOUNTER → 2017-04-09 | Outpatient (CLI) | payer MEDICARE, BC ==
[~2017-04-09] MED LIST changes: +ACETAMINOPHEN PO; +ALBUTEROL INH; +COUMADIN PO; +IPRATROPIUM INH; +LEVALBUTER1.25 MG/1 INH; +LEVALBUTEROL; +LIPITOR40 MG PO; +LISINOPRIL2.5 MG PO; +LOMOTIL WHITE2.5 M1 PO; +OXYGEN; +PEPCID AC20 M2 PO; +PREDNISONE PO; +TESSALON PERLE100 M1 PO; +XANAX PO
--- NOTE | ~2017-04-09 | CR63 ---
[facility] A Service of [facility] RADIOLOGY TEXT RESULTS PATIENT: SHLOMO THOMAS LOCATION: [facility] : 40 UNIT #: [id number] AGE: [address]: Cabrera Valdez MD SEX: F ORDER DR: [id number] [facility] [address] [place], [place] [address] [id number] O MR#: [id number] Acc #: [id number] NAME: SHLOMO THOMAS : 1940 SEX: F STUDY DATE/TIME: 04/09/2017 12:47 UNIT: [facility] ROOM: STUDY DESCRIPTION: CR Chest 2 View Attending Physician: Cabrera Valdez M.D. Referring Physician: Cabrera Valdez M.D. Ordering Physician: Cabrera Valdez M.D. Primary Care Physician: Maulik Pizano Jr., M.D. MEDICAL IMAGING REPORT This report is preliminary unless electronic signature is present EXAM PA and lateral chest 04/09/2017 COMPARISON 02/12/2017 HISTORY Lymphoma with lung involvement. Elevated white count and fever beginning last Saturday FINDINGS PA and lateral views are obtained. There is cardiac enlargement. Transvenous pacing device is in appropriate position. Left lung is clear. On the right, there is a large right-sided dependent pleural effusion with volume loss and infiltrate in the right base. CONCLUSION 1. Stable cardiomegaly. 2. Right-sided pleural effusion with right basilar infiltrate involving the lung. Dictated by... Maulik Woodruff M.D. THIS IS AN ELECTRONICALLY VERIFIED REPORT Maulik Woodruff M.D. at 04/09/2017 5:00 PM JFK/to TD: 04/09/2017 14:51 JOB #: [id number] MEDICAL IMAGING REPORT [facility] A Service of [facility] RADIOLOGY TEXT RESULTS PATIENT: SHLOMO THOMAS LOCATION: [facility] : 40 UNIT #: [id number] AGE: [address]: Cabrera Valdez MD SEX: F ORDER DR: Page 1 of 1 COPY
== END | disposition home or self-care (01) ==
LOC: CRAD 12:26
DX: C88.4 Extranodal marginal zone B-cell lymphoma of mucosa-associated lymphoid tissue [MALT-lymphoma] (principal); M88.88 Osteitis deformans of other bones; I51.7 Cardiomegaly; J90 Pleural effusion, not elsewhere classified; R91.8 Other nonspecific abnormal finding of lung field
CPT/HCPCS: 71020

== ENCOUNTER → 2017-04-15 | Outpatient (CLI) | payer MEDICARE, BC ==
[2017-04-15 12:36] LABS: HEMATOCRIT 32.2 % (35.0-45.0); HEMOGLOBIN 10.2 gm/dL (12.0-16.0); MEAN CELL VOLUME 85.1 FL (83-96); MEAN CORPUSCULAR HEMOGLOBIN 26.8 PG (28-34); MEAN CORPUSCULAR HGB CONC 31.5 g/dL (30-36); MEAN PLATELET VOLUME 7.5 FL (6.5-11.5); RED BLOOD COUNT 3.79 X10e (3.90-5.30); RED CELL DISTRIBUTION WIDTH 18.5 % (11.0-15.5); WHITE BLOOD COUNT 12.3 X10e3 (4.0-10.5)
[2017-04-15 12:55] LABS: INR 1.5; PARTIAL THROMBOPLASTIN TIME 28.6 SECONDS (23.5-31.3); PROTHROMBIN TIME (PATIENT) 15.7 SECONDS (9.6-11.5)
== END | disposition home or self-care (01) ==
LOC: CIVR 12:00
PROVIDERS: Internal Medicine Hematology & Oncology
DX: C88.4 Extranodal marginal zone B-cell lymphoma of mucosa-associated lymphoid tissue [MALT-lymphoma] (principal); M88.88 Osteitis deformans of other bones; J15.9 Unspecified bacterial pneumonia
CPT/HCPCS: 36415; 85027; 85610; 85730

== ENCOUNTER → 2017-08-05 | Outpatient (CLI) | payer MEDICARE, BC ==
--- NOTE | ~2017-08-05 | CT57 ---
[facility] A Service of [facility] RADIOLOGY TEXT RESULTS PATIENT: SHLOMO THOMAS LOCATION: [facility] : 40 UNIT #: [id number] AGE: [address]: Cabrera Valdez MD SEX: F ORDER DR: [id number] [facility] [address] [facility]. [place], [place] [address] [id number] O MR#: [id number] Acc #: [id number] NAME: SHLOMO THOMAS : 1940 SEX: F STUDY DATE/TIME: 08/05/2017 9:13 UNIT: [facility] ROOM: STUDY DESCRIPTION: CT Chest Wo Cont Attending Physician: Cabrera Valdez M.D. Referring Physician: Cabrera Valdez M.D. Ordering Physician: Cabrera Valdez M.D. Primary Care Physician: Maulik Pizano Jr., M.D. MEDICAL IMAGING REPORT This report is preliminary unless electronic signature is present EXAM CT chest without contrast. INDICATIONS B-cell lymphoma of the lung. Patient has undergone radiation therapy. This exam is requested for surveillance for metastatic disease. COMPARISON Comparison is made to a prior study from March 19, 2017. TECHNIQUE Axial CT images were obtained from the thoracic inlet through the dome of the diaphragm. No intravenous contrast material was administered. This CT exam was performed with one or more of the following radiation dose reduction techniques: automatic exposure control, adjustment of mA and/or kV according to patient size, and iterative reconstruction. FINDINGS Patient has some increasing consolidation within the right middle lobe. This is area measures up to 5.4 x 3.7 cm, previously the same area measured roughly 4.6 x 2.8 cm. This may simply reflect some evolving fibrotic change given history of radiation in this area, however, attention to it on subsequent exams is recommended. There is also some increasing consolidation seen within the right lower lobe, when compared to the February exam. Again, this certainly could reflect some postradiation change. The thyroid gland, trachea and esophagus appear unremarkable. Patient does have cardiomegaly and there are extensive coronary artery calcifications. Thoracic aorta measures within normal size limits. Main pulmonary artery is enlarged which can be seen in the setting of pulmonary arterial hypertension. Right pleural effusion is present and I do not really think is significantly changed when compared to the prior exam. Shotty mediastinal lymph nodes are noted. Appear to have actually decreased in size when compared to the prior exam for example, lower right STS. [facility] A Service of [facility] RADIOLOGY TEXT RESULTS PATIENT: SHLOMO THOMAS LOCATION: [facility] : 40 UNIT #: [id number] AGE: [address]: Cabrera Valdez MD SEX: F ORDER DR: paratracheal node measures 1.4 x 0.9 cm previously 1.7 x 1.5 cm. Images through the upper abdomen do not demonstrate any acute abnormalities. The patient does have some punctate nonobstructing stones within the superior pole of the left kidney. Review of bony windows does not demonstrate any aggressive osseous abnormalities. IMPRESSION 1. Patient does have an area of increasing consolidation within the right middle lobe. There is also some increasing consolidation within the right lower lobe in a perihilar distribution. 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 However, short-term followup is suggested. PET potentially also could be considered for additional evaluation. 2. Stable right pleural effusion. 3. Mildly prominent mediastinal lymph nodes actually appear improved when compared to the prior study. 4. Nonobstructing stone identified within the superior pole of the left kidney. 5. Enlargement of the main pulmonary artery which can be seen in the setting of pulmonary arterial hypertension. Please see the body of the report for any other additional incidental findings. Dictated by... Paty Torres M.D. THIS IS AN ELECTRONICALLY VERIFIED REPORT Paty Torres M.D. at 08/07/2017 8:14 AM KATHRIN/cynthia TD: 08/05/2017 21:44 JOB #: [id number] MEDICAL IMAGING REPORT Page 1 of 1 COPY
== END | disposition home or self-care (01) ==
LOC: CCAT 08:39
DX: C88.4 Extranodal marginal zone B-cell lymphoma of mucosa-associated lymphoid tissue [MALT-lymphoma] (principal); M88.88 Osteitis deformans of other bones; J15.9 Unspecified bacterial pneumonia; J90 Pleural effusion, not elsewhere classified; N20.0 Calculus of kidney; I77.89 Other specified disorders of arteries and arterioles; I28.9 Disease of pulmonary vessels, unspecified
CPT/HCPCS: 71250